=== PATIENT | female | born 1970 | race Caucasian/White ===

== ENCOUNTER 2016-12-27 17:54 | Inpatient (IN) | payer MEDICARE, OTHER ==
--- NOTE | ~2016-12-27 | OP ---
Record Of Operation [facility] [address] [place]. [address] NAME: NELSON BLUM : 72 STATUS : ADM IN [facility]#: [id number] AGE: 46 ADM/REG DATE : 12/27/16 MR#: [id number] REPORT SERV DATE: 12/28/16 DICTATED BY: KEATON PARRA DATE: 12/28/16 REPORT STATUS : Draft TRANSCRIBED BY: MODL DATE: 12/28/16 DATE OF PROCEDURE: 12/28/2016 PREOPERATIVE DIAGNOSIS: Right lower extremity chronic infection. POSTOPERATIVE DIAGNOSIS: Right lower extremity chronic infection. PROCEDURE: Right above-knee amputation. SURGEON: Mata Parra M.D. AGENCY APPOINTMENTS SUPERVISOR: See chart. DESCRIPTION OF PROCEDURE: The patient was taken to the operating room and placed supine on the table in normal fashion without any incident. General anesthetic was induced per the anesthesiologist. The patient was carefully positioned, padded, prepped, and draped in normal sterile fashion. A clamshell-type incision was made just proximal to the knee, electrocautery through the fat. A sequential dissection was done down onto the bone circumferentially. The femoral vascular bundle was identified and double stick tied. There was no evidence of bleeding there. Meticulous hemostasis was obtained. The sciatic nerve was grasped, pulled out into the wound, and cut sharply short so as to avoid neuroma formation. Periosteal elevator was used to elevate. The periosteum off the bone that was cut with a reciprocating saw. It was smoothed with a rasp. The wound was copiously irrigated, and again after meticulous hemostasis, the repair was done of anterior to posterior imagined structures. The wound was dressed sterilely. The patient awakened and taken to the postanesthesia care unit without incident. COMPLICATIONS: None. SPECIMENS: Amputated right lower extremity. ESTIMATED BLOOD LOSS: About 200 mL. WTB/SHAYYL Mata Parra M.D. / [id number] CC: Keyshawn Bailey MD
--- NOTE | ~2016-12-27 | DS ---
Discharge Summary [facility] [address] [place]. [address] NAME: NELSON BLUM : 72 STATUS : DIS IN PAT#: [id number] AGE: 46 ADM/REG DATE : 12/27/16 MR#: [id number] REPORT SERV DATE: 01/15/17 DICTATED BY: KEATON PARRA DATE: 01/12/17 REPORT STATUS : Draft TRANSCRIBED BY: JACQUELYN DATE: 01/12/17 Data Collection from hospitalization DISCHARGE DIAGNOSES: 1. Right lower extremity chronic infection. 2. Anxiety disorder. 3. Fibromyalgia. 4. Hypercholesterolemia. 5. Asthma. 6. Chronic obstructive pulmonary disease. 7. Tobacco use. CONSULTATIONS: None. PROCEDURES PERFORMED: Right above-knee amputation, 12/28/2016. PATHOLOGY: Right leg [id number] amputation - soft tissue with focal severe acute necrotizing inflammation with abscess formation, granulation tissue with focal bone destruction and osteonecrosis and focal foreign body reaction. Viable skin and soft tissue and bone margin without significant inflammatory component or osteomyelitis. Popliteal anterior tibial and posterior tibial artery without significant atherosclerotic compromise or involvement. Two benign lymph nodes. DISCHARGE MEDICATIONS: Soma 350 mg twice a day, vitamin D 1000 units daily, Colace 100 mg twice a day, Lexapro 20 mg at bedtime, ferrous sulfate 300 mg with breakfast and supper, levothyroxine 75 mcg daily, Ativan 1 mg twice a day, Singulair 10 mg at bedtime, Theragran tablets one tablet with breakfast, Protonix 40 mg twice a day, Lyrica 150 mg three times a day, Requip 3 mg at bedtime, Zocor 20 mg at bedtime, Coumadin as instructed, Tylenol 650 mg every four hours as needed, Mylanta 30 mL as needed, Dulcolax 15 mg as needed, Dilaudid 2-4 mg every four hours as needed, milk of magnesia 30 mL as needed, MiraLAX powder one packet twice a day as needed, Proventil one nebulized inhaler four times a day as needed, ProAir two puffs via inhaler as needed, Atrovent one nebulized inhaler four times a day as needed, lidocaine ointment one application twice a day as needed. CONDITION AT DISCHARGE: Stable. DISPOSITION: The patient was discharged to [facility] on a regular diet with activities as instructed. HOSPITAL COURSE: This is a 46-year-old female, who was seen for followup status post right total knee arthroplasty resection, 02/17/2016. The patient states that her pain was a 10 on a scale of 0-10. The patient has a chronic right lower extremity infection. It was felt that the patient would need to undergo an amputation. Treatment options were discussed and it was elected to proceed with surgical intervention. She was admitted to the hospital at this time for further evaluation and treatment. Upon admission, she was taken to the operating room where she underwent the above-mentioned procedure. She tolerated this well and there were no complications. On postop day one, she Discharge Summary [place] [id number] [place]. [address] NAME: NELSON BLUM : 72 STATUS : DIS IN [facility]#: [id number] AGE: 46 ADM/REG DATE : 12/27/16 MR#: [id number] REPORT SERV DATE: 01/15/17 DICTATED BY: KEATNO PARRA DATE: 01/12/17 REPORT STATUS : Draft TRANSCRIBED BY: JACQUELYN DATE: 01/12/17 was up sitting in a chair. She was crying and complained of pain being 8/10. She was transfused 1 unit of packed red blood cells. On the , she said she was still hurting on oxycodone and IV morphine for breakthrough pain. We encouraged her to use incentive spirometry. She was encouraged to mobilize with Physical Therapy. On 12/31/2016, she continued to state that her pain was not controlled. It was 8/10 in the right leg, but she was very drowsy. She could not keep her eyes open. Compression dressing remained in place. She was evaluated by Occupational and Physical Therapy. She continued to complain of pain in the right stump and also in the mid-lower back. She said it started hurting after transferring from the bed to the wheelchair. Discharge planning was performed. On 01/02/2017, she had no focal deficits. She had normal distal pulses. Discharge instructions were given. Due to her improved and stable condition, she was discharged to [facility] with the above-stated instructions. Information collected by: Delisa Coelho I submit the above information as my discharge summary. SERGIO/JACQUELYN Mata Parra M.D. / [id number] CC: Keyshawn Bailey MD [facility]
[~2016-12-27 17:54] MED LIST: ACCUNE1 INH; ADVAIR250 INH; ADVIL PO; ALBUTEROL5 INH; AMB5 PO; APRISO; ARMOUR THYRO60 MG PO; AT25 PO; ATROVENTUD INH; ATV1 PO; AVINZA60 PO; BUT/APAP/CAF OR; C2 PO; C25 PO; C5 PO; CIP5 PO; DIL4TAB PO; DILAUDID8 MG PO; ENBREL50 MG/M1 SC; ENDOCET1 TA4 PO; FERROUS SULF325 M1 PO; FIOR PO; HYDROXYZ HCL PO; KLONO5 PO; LEVOTHYROXIN75 MCG PO; LEXAPRO10 PO; LEXAPRO20 PO; LIALDA1.2 GM PO; LYRICA150 MG PO; LYRICA200 MG PO; METADATE OR; METHOTREXATE25 MG/ML SQ; MORPHINE SULF PO; NEUR800 PO; NORV25 PO; P5 PO; PCET PO; PERCOCET1 TA4 PO; PERCOCET1 TA5 PO; PLAQ200B PO; PR25 PO; PREV30 PO; PRILO PO; PROAIR HFA INH; PROTONIX PO; PROVENT20 INH; REQUIP3 PO; REQUIP5 MG PO; ROXICODONE15 MG PO; SINGULAIR1 PO; SOMATAB PO; T PO; TRAZODONE150 MG PO; TYLENOL PM PO; V5 PO; VENTOLIN HFA INH; VITAMIN D1000 UNI1 PO; VITAMIN D31000 UNIT PO; ZOCOR20 PO
[2016-12-27] MEDS ORDERED: ATV1 PO ×2 (19:47→19:48)
[2016-12-27] MEDS ORDERED: REQUIP3 PO (19:48)
[2016-12-27] MEDS ORDERED: SINGULAIR1 PO (19:48)
[2016-12-27] MEDS ORDERED: LYRICA150 MG PO (19:48)
[2016-12-27] MEDS ORDERED: AMB5 PO (19:49)
[2016-12-27] MEDS ORDERED: LEXAPRO20 PO (19:49)
[2016-12-27] MEDS ORDERED: PROTONIX PO (19:49)
[2016-12-27] MEDS ORDERED: LEVOTHYROXIN75 MCG PO (19:49)
[2016-12-27] MEDS ORDERED: ZOCOR20 PO (19:49)
[2016-12-27] MEDS ORDERED: OXYCOD PO (19:50)
[2016-12-27] MEDS ORDERED: VITAMIN D1000 UNI1 PO (19:55)
[2016-12-27] MEDS ORDERED: OTC PAIN MED PO (19:56)
[2016-12-27] MEDS ORDERED: SOMATAB PO (19:56)
[2016-12-27] MEDS ORDERED: ACET500CAP PO (19:56)
[2016-12-27] MEDS ORDERED: LIDOCAINE 5% OINT TOP (19:57)
[2016-12-28 08:39] LABS: HEMATOCRIT 30.3 % (36.0-48.0); HEMOGLOBIN 9.5 g/dL (12.0-16.0)
[2016-12-28 08:48] LABS: INTERNATIONAL NORMAL RATI 1.2 UNITS (-); PROTIME (NOT ORD) 15.5 SEC (12.0-14.5)
[2016-12-28 08:55] LABS: CHLORIDE, SERUM 105 MMOL/L (96-112); CO2 (CARBON DIOXIDE) 28 MMOL/L (24-34); CREATININE 0.55 MG/DL (0.55-1.02); DIRECT BILIRUBIN 0.1 MG/DL (0.0-0.4); GFR AFRICAN AMERICAN 131 ML/MIN (>=60); GFR NON AFRICAN AMERICAN 113 ML/MIN (>=60); GLUCOSE, SERUM 91 MG/DL (60-99); INDIRECT BILIRUBIN(NOT ORDER) 0.2 MG/DL (0.1-0.9); SGOT(AST) 12 U/L (5-40); SGPT(ALT) 8 U/L (5-65); SODIUM, SERUM 140 MMOL/L (135-148); TOTAL BILIRUBIN 0.3 MG/DL (0-1.2); TOTAL PROTEIN 8.5 G/DL (6.0-8.5)
[2016-12-28 08:56] LABS: ALKALINE PHOSPHATASE 174 U/L (45-117); BUN (BLOOD UREA NITROGEN) 9 MG/DL (6-23); CALCIUM, SERUM 8.6 MG/DL (8.5-10.4); POTASSIUM, SERUM 3.3 MMOL/L (3.5-5.3)
[2016-12-29 06:23] LABS: HEMATOCRIT 26.4 % (36.0-48.0); HEMOGLOBIN 8.1 g/dL (12.0-16.0)
[2016-12-29 06:24] LABS: INTERNATIONAL NORMAL RATI 1.4 UNITS (-); PROTIME (NOT ORD) 17.2 SEC (12.0-14.5)
[2016-12-29 06:30] LABS: BUN (BLOOD UREA NITROGEN) 9 MG/DL (6-23); CHLORIDE, SERUM 101 MMOL/L (96-112); CO2 (CARBON DIOXIDE) 30 MMOL/L (24-34); CREATININE 0.61 MG/DL (0.55-1.02); GFR AFRICAN AMERICAN 127 ML/MIN (>=60); GFR NON AFRICAN AMERICAN 109 ML/MIN (>=60); GLUCOSE, SERUM 90 MG/DL (60-99); POTASSIUM, SERUM 3.2 MMOL/L (3.5-5.3); SODIUM, SERUM 138 MMOL/L (135-148)
[2016-12-30 06:22] LABS: BASOPHILS 0.2 %; BASOPHILS ABSOLUTE 0.02 10/3/uL (0.0-0.16); EOSINOPHILS 1.5 %; EOSINOPHILS ABSOLUTE 0.16 10/3/uL (0.0-0.53); HEMOGLOBIN 9.4 g/dL (12.0-16.0); IMMATURE GRANULOCYTES 0.1 %; IMMATURE GRANULOCYTES ABSOLUTE 0.01 10/3/uL (0.0-0.11); LYMPHOCYTES 16.9 %; LYMPHOCYTES ABSOLUTE 1.86 10/3/uL (0.67-4.30); MEAN CORPUS HGB CONC 32.2 g/dL (32.0-36.0); MEAN CORPUSCULAR HEMOGLOB 25.7 pg (26.0-34.0); MEAN PLATELET VOLUME 8.4 fL (9.2-13.0); MONOCYTES ABSOLUTE 0.99 10/3/uL (0.21-1.20); NEUTROPHILS 72.3 %; NEUTROPHILS ABSOLUTE 7.95 10/3/uL (2.02-8.40); PLATELET COUNT 308 10/3/uL (150-400); RBC DISTRIBUTION WIDTH 18.4 % (12.0-16.0); RED CELL COUNT 3.66 10/6/uL (4.0-5.6)
[2016-12-30 06:23] LABS: HEMATOCRIT 29.2 % (36.0-48.0); MEAN CORPUSCULAR VOLUME 79.8 fL (80-100)
[2016-12-30 06:24] LABS: MANUAL DIFF NO %
[2016-12-30 06:28] LABS: INTERNATIONAL NORMAL RATI 1.8 UNITS (-)
[2016-12-30 06:29] LABS: BUN (BLOOD UREA NITROGEN) 11 MG/DL (6-23); CALCIUM, SERUM 8.1 MG/DL (8.5-10.4); CHLORIDE, SERUM 102 MMOL/L (96-112); CO2 (CARBON DIOXIDE) 33 MMOL/L (24-34); CREATININE 0.48 MG/DL (0.55-1.02); GFR AFRICAN AMERICAN 137 ML/MIN (>=60); GFR NON AFRICAN AMERICAN 118 ML/MIN (>=60); GLUCOSE, SERUM 98 MG/DL (60-99); POTASSIUM, SERUM 3.4 MMOL/L (3.5-5.3); PROTIME (NOT ORD) 20.3 SEC (12.0-14.5); SODIUM, SERUM 139 MMOL/L (135-148)
[2016-12-31 05:05] LABS: HEMATOCRIT 28.3 % (36.0-48.0); HEMOGLOBIN 8.8 g/dL (12.0-16.0)
[2016-12-31 05:12] LABS: INTERNATIONAL NORMAL RATI 2.4 UNITS (-)
[2016-12-31 05:15] LABS: PROTIME (NOT ORD) 25.6 SEC (12.0-14.5)
[2016-12-31 05:16] LABS: BUN (BLOOD UREA NITROGEN) 13 MG/DL (6-23); CALCIUM, SERUM 7.7 MG/DL (8.5-10.4); CHLORIDE, SERUM 103 MMOL/L (96-112); CO2 (CARBON DIOXIDE) 33 MMOL/L (24-34); CREATININE 0.57 MG/DL (0.55-1.02); GFR AFRICAN AMERICAN 130 ML/MIN (>=60); GFR NON AFRICAN AMERICAN 112 ML/MIN (>=60); GLUCOSE, SERUM 90 MG/DL (60-99); POTASSIUM, SERUM 3.4 MMOL/L (3.5-5.3); SODIUM, SERUM 140 MMOL/L (135-148)
[2017-01-01 05:33] LABS: BASOPHILS 0.2 %; BASOPHILS ABSOLUTE 0.02 10/3/uL (0.0-0.16); EOSINOPHILS 2.1 %; EOSINOPHILS ABSOLUTE 0.22 10/3/uL (0.0-0.53); HEMATOCRIT 28.5 % (36.0-48.0); HEMOGLOBIN 8.7 g/dL (12.0-16.0); IMMATURE GRANULOCYTES 0.3 %; IMMATURE GRANULOCYTES ABSOLUTE 0.03 10/3/uL (0.0-0.11); LYMPHOCYTES 18.9 %; MEAN CORPUSCULAR VOLUME 81.9 fL (80-100); MEAN PLATELET VOLUME 8.2 fL (9.2-13.0); MONOCYTES ABSOLUTE 0.95 10/3/uL (0.21-1.20); NEUTROPHILS 69.5 %; NEUTROPHILS ABSOLUTE 7.37 10/3/uL (2.02-8.40); PLATELET COUNT 345 10/3/uL (150-400); RBC DISTRIBUTION WIDTH 19.1 % (12.0-16.0); RED CELL COUNT 3.48 10/6/uL (4.0-5.6); WHITE BLOOD CELLS 10.6 10/3/uL (4.5-10.5)
[2017-01-01 05:36] LABS: MANUAL DIFF NO %; MEAN CORPUS HGB CONC 30.5 g/dL (32.0-36.0)
[2017-01-01 05:45] LABS: BUN (BLOOD UREA NITROGEN) 13 MG/DL (6-23); CALCIUM, SERUM 7.9 MG/DL (8.5-10.4); CHLORIDE, SERUM 99 MMOL/L (96-112); CO2 (CARBON DIOXIDE) 35 MMOL/L (24-34); CREATININE 0.44 MG/DL (0.55-1.02); GFR AFRICAN AMERICAN 141 ML/MIN (>=60); GFR NON AFRICAN AMERICAN 122 ML/MIN (>=60); GLUCOSE, SERUM 98 MG/DL (60-99); POTASSIUM, SERUM 3.9 MMOL/L (3.5-5.3); SODIUM, SERUM 136 MMOL/L (135-148)
[2017-01-01 05:48] LABS: INTERNATIONAL NORMAL RATI 2.1 UNITS (-)
[2017-01-02 05:37] LABS: BASOPHILS 0.4 %; BASOPHILS ABSOLUTE 0.04 10/3/uL (0.0-0.16); EOSINOPHILS 3.3 %; EOSINOPHILS ABSOLUTE 0.34 10/3/uL (0.0-0.53); HEMATOCRIT 28.7 % (36.0-48.0); IMMATURE GRANULOCYTES 0.3 %; IMMATURE GRANULOCYTES ABSOLUTE 0.03 10/3/uL (0.0-0.11); LYMPHOCYTES 25.1 %; LYMPHOCYTES ABSOLUTE 2.58 10/3/uL (0.67-4.30); MEAN CORPUS HGB CONC 31.4 g/dL (32.0-36.0); MEAN CORPUSCULAR HEMOGLOB 25.4 pg (26.0-34.0); MEAN CORPUSCULAR VOLUME 80.8 fL (80-100); MEAN PLATELET VOLUME 8.4 fL (9.2-13.0); MONOCYTES 10.6 %; MONOCYTES ABSOLUTE 1.09 10/3/uL (0.21-1.20); NEUTROPHILS 60.3 %; NEUTROPHILS ABSOLUTE 6.19 10/3/uL (2.02-8.40); PLATELET COUNT 362 10/3/uL (150-400); RBC DISTRIBUTION WIDTH 19.1 % (12.0-16.0); RED CELL COUNT 3.55 10/6/uL (4.0-5.6); WHITE BLOOD CELLS 10.3 10/3/uL (4.5-10.5)
[2017-01-02 05:41] LABS: MANUAL DIFF NO %
[2017-01-02 06:05] LABS: INTERNATIONAL NORMAL RATI 1.8 UNITS (-); PROTIME (NOT ORD) 20.5 SEC (12.0-14.5)
[2017-03-14] MEDS ORDERED: KADIANSR30 PO (02:26)
[2017-03-14] MEDS ORDERED: AMB5 PO (02:28)
[2017-03-14] MEDS ORDERED: VANCO1P IV (02:28)
[2017-03-26] MEDS ORDERED: SEPTRA DS1 TAB PO (13:58)
[2017-03-26] MEDS ORDERED: CIP5 PO (14:00)
[2017-03-26] MEDS ORDERED: FLUCON1 PO (14:02)
== END 2017-01-02 23:58 | DRG 475 ==
LOC: 1SO 17:54
PROVIDERS: Nurse Practitioner Acute Care; Nurse Practitioner Family; Specialist
PROC: 0Y6F0ZZ Detachment at Right Knee Region, Open Approach (ICD-10-PCS; principal; 2016-12-28 13:30)
PROC: 30233N1 Transfusion of Nonautologous Red Blood Cells into Peripheral Vein, Percutaneous Approach (ICD-10-PCS; 2016-12-29)
DX: M00.9 Pyogenic arthritis, unspecified (principal); D62 Acute posthemorrhagic anemia; E44.0 Moderate protein-calorie malnutrition; Z68.1 Body mass index [BMI] 19.9 or less, adult; Z99.81 Dependence on supplemental oxygen; M06.9 Rheumatoid arthritis, unspecified; J44.9 Chronic obstructive pulmonary disease, unspecified; E87.6 Hypokalemia; E78.5 Hyperlipidemia, unspecified; M79.7 Fibromyalgia; K21.9 Gastro-esophageal reflux disease without esophagitis; F32.9 Major depressive disorder, single episode, unspecified; E03.9 Hypothyroidism, unspecified; F17.210 Nicotine dependence, cigarettes, uncomplicated; Z79.899 Other long term (current) drug therapy; Z79.891 Long term (current) use of opiate analgesic; Z88.5 Allergy status to narcotic agent; Z88.8 Allergy status to other drugs, medicaments and biological substances; Z91.81 History of falling
CPT/HCPCS: 36415; 71010; 80048; 80076; 84132; 84703; 85014; 85018; 85025; 85610; 86850; 86900; 86901; 86920; 88307; 97110-GP; 97162-GP; 97165-GO; 97530-GP; A9270-GY; J0690; J1170; J2250; J2710; J3010; P9016

== ENCOUNTER 2017-01-19 16:48 | Emergency (ER) | payer MEDICARE, OTHER ==
[2017-01-19 16:15] LABS: BASOPHILS 0.6 %; BASOPHILS ABSOLUTE 0.04 10/3/uL (0.0-0.16); EOSINOPHILS 2.7 %; EOSINOPHILS ABSOLUTE 0.19 10/3/uL (0.0-0.53); HEMATOCRIT 28.6 % (36.0-48.0); IMMATURE GRANULOCYTES 0.4 %; IMMATURE GRANULOCYTES ABSOLUTE 0.03 10/3/uL (0.0-0.11); LYMPHOCYTES 26.7 %; LYMPHOCYTES ABSOLUTE 1.87 10/3/uL (0.67-4.30); MEAN CORPUS HGB CONC 31.5 g/dL (32.0-36.0); MEAN CORPUSCULAR HEMOGLOB 25.7 pg (26.0-34.0); MEAN CORPUSCULAR VOLUME 81.7 fL (80-100); MEAN PLATELET VOLUME 9.1 fL (9.2-13.0); NEUTROPHILS 59.6 %; NEUTROPHILS ABSOLUTE 4.18 10/3/uL (2.02-8.40); RBC DISTRIBUTION WIDTH 18.8 % (12.0-16.0)
[2017-01-19 16:16] LABS: MANUAL DIFF NO %; PLATELET COUNT 234 10/3/uL (150-400)
[2017-01-19 16:27] LABS: CHLORIDE, SERUM 104 MMOL/L (96-112); CREATININE 0.45 MG/DL (0.55-1.02); GFR AFRICAN AMERICAN 140 ML/MIN (>=60); GFR NON AFRICAN AMERICAN 121 ML/MIN (>=60); GLUCOSE, SERUM 88 MG/DL (60-99); SODIUM, SERUM 138 MMOL/L (135-148)
[2017-01-19 16:28] LABS: BUN (BLOOD UREA NITROGEN) 18 MG/DL (6-23); CO2 (CARBON DIOXIDE) 28 MMOL/L (24-34)
[2017-01-19 16:37] LABS: ANISOCYTOSIS 1+ (5-10/OIF) (0-5/OIF); HYPOCHROMIA 1+ (3-10/OIF) (0-2/OIF); PLATELET ESTIMATE ADQ (ADEQUATE)
[2017-01-19 16:38] LABS: OVALOCYTES 1+ (3-10/OIF) (0-2/OIF); SPHEROCYTES FEW (3-10/OIF)
[~2017-01-19 16:48] MED LIST changes: +ACET500CAP PO; +LIDOCAINE 5% OINT TOP; +OTC PAIN MED PO; +OXYCOD PO
[2017-03-14] MEDS ORDERED: KADIANSR30 PO (02:26)
[2017-03-14] MEDS ORDERED: VANCO1P IV (02:28)
[2017-03-14] MEDS ORDERED: AMB5 PO (02:28)
[2017-03-26] MEDS ORDERED: SEPTRA DS1 TAB PO (13:58)
[2017-03-26] MEDS ORDERED: CIP5 PO (14:00)
[2017-03-26] MEDS ORDERED: FLUCON1 PO (14:02)
== END 2017-01-19 21:55 | disposition home or self-care (01) ==
LOC: ER 16:48
PROVIDERS: Nurse Practitioner
DX: M48.06 Spinal stenosis, lumbar region (principal); D64.9 Anemia, unspecified; E83.51 Hypocalcemia; J45.909 Unspecified asthma, uncomplicated; F17.200 Nicotine dependence, unspecified, uncomplicated; Z88.8 Allergy status to other drugs, medicaments and biological substances; Z79.899 Other long term (current) drug therapy
CPT/HCPCS: 72132; 80048; 85025; 96374; 96375; 99285; J2360; J2405; J2550; Q9967

== ENCOUNTER 2017-01-30 13:43 | Inpatient (IN) | payer MEDICARE, OTHER ==
--- NOTE | ~2017-01-30 | OP ---
Record Of [facility] [address] [place]. [address] NAME: NELSON BLUM : 72 STATUS : DIS IN PAT#: [id number] AGE: 46 ADM/REG DATE : 01/30/17 MR#: [id number] REPORT SERV DATE: 02/19/17 DICTATED BY: VIANEY DE LA TORRE II DATE: 02/15/17 REPORT STATUS : Draft TRANSCRIBED BY: JACQUELYN DATE: 02/15/17 DATE OF PROCEDURE: 02/13/2017 PREOPERATIVE DIAGNOSIS: A failed pain pump, pain management system. POSTOPERATIVE DIAGNOSIS: A failed pain pump, pain management system. PROCEDURE: Removal of symptomatic pain pump from the right lower abdominal quadrants. SURGEON: Vianey De La Torre M.D. FLUIDS: 200 mL of LR. ESTIMATED BLOOD LOSS: Zero. DRAINS: None. COMPLICATIONS: None. ANTIBIOTIC: Preoperatively. PREOPERATIVE HISTORY: This 46-year-old female who is no longer utilizing her pain pump system. She had seen Pain Management in the past. She now is in the hospital for hematogenous diskitis and osteomyelitis, which has been surgically treated and she is still in the hospital for medical treatment. She was very interested in having this very large and symptomatic pain pump canister removed. Given her very cachectic frame, the canister was extremely prominent. We discussed the surgery and she was adamant that it be removed. We had previously removed the catheter from the pump through the posterior approach and essentially tied the catheter off. At this point, our goal was to remove the canister and provide her with some symptomatic relief. DESCRIPTION OF PROCEDURE: After informed consent was obtained, the patient was brought to the operating room at her request and general anesthesia achieved. She was placed in the supine position and the abdomen was prepped and draped in a sterile fashion. The large canister was removed through an incision (transverse). At this point, the canister was removed in its entirety and the area irrigated followed by a standard closure. The patient was extubated and transferred to PACU in stable condition. NORA/JACQUELYN Vianey De La Torre Record Of Operation [address] [address] NAME: NELSON BLUM : 72 STATUS : DIS IN PAT#: [id number] AGE: 46 ADM/REG DATE : 01/30/17 MR#: [id number] REPORT SERV DATE: 02/19/17 DICTATED BY: VIANEY DE LA TORRE II DATE: 02/15/17 REPORT STATUS : Draft TRANSCRIBED BY: MODL DATE: 02/15/17 Keyshawn JULIEN / [id number] CC: Keyshawn Ceballos II, MD
--- NOTE | ~2017-01-30 | OP ---
Record Of Operation [place] [address] [facility] [place]. [address] NAME: NELSON BLUM : 72 STATUS : ADM IN PAT#: [id number] AGE: 46 ADM/REG DATE : 01/30/17 MR#: [id number] REPORT SERV DATE: 02/09/17 DICTATED BY: VIANEY DE LA TORRE II DATE: 02/09/17 REPORT STATUS : Draft TRANSCRIBED BY: MODL DATE: 02/09/17 DATE OF PROCEDURE: 02/02/2017 PREOPERATIVE DIAGNOSES: 1. Hematogenous diskitis with osteomyelitis at L3-L4. 2. Severe stenosis L3-4, moderate stenosis L4-5. 3. Lumbar kyphosis and scoliosis secondary to instability due to the osteomyelitis and osseous destruction. POSTOPERATIVE DIAGNOSES: 1. Hematogenous diskitis with osteomyelitis at L3-L4. 2. Severe stenosis L3-4, moderate stenosis L4-5. 3. Lumbar kyphosis and scoliosis secondary to instability due to the osteomyelitis and osseous destruction. PROCEDURE: 1. Anterior partial corpectomy L3. 2. Anterior partial corpectomy L4. 3. Interbody arthrodesis, anterior, L3 and L4. 4. Debridement of osteomyelitis and diskitis. 5. Application of prosthetic device L3-L4. 6. Anterior instrumentation L3-L4. 7. Use of allograft substitute and bone morphogenic protein. SURGEON: Vianey De La Torre M.D. (Dr. Mckenzie was the co-surgeon for the anterior interbody arthrodesis). FLUIDS: Approximately 2 L lactated Ringer's. ESTIMATED BLOOD LOSS: 200 mL. CULTURES: Taken. ANTIBIOTICS: Given. DETAILS OF PROCEDURE: The patient was brought to the operating room at her request, and general anesthesia achieved. She was placed in the lateral position and the left-sided lateral approach performed by Dr. Mckenzie. The proper level was then radiographically confirmed. Under loupe magnification and head lamp, the significant osseous destruction was noted at L3 L4. At this point, we then had to aggressively debride and perform a partial corpectomy of L3. The rongeurs and pituitary rongeurs were used to remove necrotic bone. Approximately half of the vertebral body was resected. Next, the similar procedure was required at L4. Once again, we removed approximately 50% of Record Of Operation [place] [id number] [facility] [place]. [address] NAME: NELSON BLUM : 72 STATUS : ADM IN PAT#: [id number] AGE: 46 ADM/REG DATE : 01/30/17 MR#: [id number] REPORT SERV DATE: 02/09/17 DICTATED BY: VIANEY DE LA TORRE II DATE: 02/09/17 REPORT STATUS : Draft TRANSCRIBED BY: MODL DATE: 02/09/17 the vertebral body. The debridement was carried out aggressively to identify and reveal bleeding bone. Next, the area was irrigated. Please note, cultures were taken prior to debridement and corpectomy. Following copious irrigation, the corpectomy device was placed. This was an expandable device. Partial correction of the kyphosis was achieved. Next, the anterior instrumentation was applied with Globus plate. Two screws were then placed in the cranial portion of L3 and the caudal portion of L4. Multiplanar imaging confirmed acceptable placement of the implants. Next, allograft substitute and bone morphogenic protein were applied to the defect. The standard closure was performed. The patient was extubated and transferred to PACU in stable condition. NORA/JACQUELYN Vianey De La Torre II, M.D. / [id number] CC: Keyshawn Ceballos II, MD
--- NOTE | ~2017-01-30 | DS ---
Discharge Summary [facility] [address] [place]. [address] NAME: NELSON BLUM : 72 STATUS : DIS IN PAT#: [id number] AGE: 46 ADM/REG DATE : 01/30/17 MR#: [id number] REPORT SERV DATE: 03/06/17 DICTATED BY: VIANEY DE LA TORRE II DATE: 03/05/17 REPORT STATUS : Draft TRANSCRIBED BY: JACUQELYN DATE: 03/05/17 Data Collection from hospitalization DISCHARGE DIAGNOSES: 1. Hematogenous diskitis with osteomyelitis at L3-L4. 2. Severe stenosis at L3-4, moderate stenosis at L4-5. 3. Lumbar kyphosis and scoliosis secondary to instability due to the osteomyelitis and osseous destruction. 4. Hypothyroidism. 5. History of recent right knee amputation. 6. Tobacco use. CONSULTATIONS: 1. Wilfrid Gomez M.D. 2. Kee Mckenzie M.D. PROCEDURES PERFORMED: 1. Lateral retroperitoneal exposure from L2-L5, corpectomy with diskectomy at L3-L4 with instrumentation and placement of interbody device on 02/02/2017. 2. Anterior partial corpectomy at L3; anterior partial corpectomy at L4; interbody arthrodesis, anterior, L3 and L4; debridement of osteomyelitis and diskitis; application of prosthetic device at L3-L4; anterior instrumentation at L3-L4; use of allograft substitute and bone morphogenic protein on 02/02/2017. 3. Posterior arthrodesis at L2-3, L3-4, and L4-5; posterior segmental instrumentation at L2-3, L3-4, and L4-5; use of allograft substitute and bone morphogenic protein; use of stereotactic spinal imaging on 02/07/2017. 4. Removal of symptomatic pain pump from right lower abdominal quadrant on 02/13/2017. PATHOLOGY: Bone biopsy left 12th rib - no specific microscopic abnormality. Bone marrow - normal appearing lineage hematopoiesis - 50% cellular. Bone and soft tissue, lumbar spine - nonspecific degenerative changes. Hardware from previous surgery - see gross description. MEDICATIONS: Tylenol 1000 mg twice a day as needed, ProAir two puffs via inhaler as needed, Soma 350 mg twice a day, vitamin D 1000 units daily, Lexapro 20 mg at bedtime, Dilaudid 2 mg every four hours as needed, Ativan 1 mg twice a day, Singulair 10 mg at bedtime, Roxicodone 30 mg every six hours as needed, Protonix 40 mg twice a day, Lyrica 150 mg three times a day, Zocor 20 mg at bedtime, and IV vancomycin as instructed. CONDITION AT DISCHARGE: Stable. DISPOSITION: The patient was discharged home to be followed by home health care on a regular diet with activities as instructed. She would follow up with me two to three weeks following discharge. 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 She has a remote history of MSSA right hip infection. She had been apparently noncompliant according to Dr. Gomez. She was transferred to a rehab facility and then Discharge Summary [address] [address] NAME: NELSON BLUM : 72 STATUS : DIS IN PAT#: [id number] AGE: 46 ADM/REG DATE : 01/30/17 MR#: [id number] REPORT SERV DATE: 03/06/17 DICTATED BY: VIANEY DE LA TORRE II DATE: 03/05/17 REPORT STATUS : Draft TRANSCRIBED BY: JACQUELYN DATE: 03/05/17 began having severely intensifying back pain. An MRI was performed, which showed infection at L3-4. She denies any history of surgery previously in her spine. She does have chronic coccyx wounds that were debrided over the past year. [facility] Her MRI had shown significant destruction of the L3 and L4 vertebral bodies and some stenosis at L3-4 and L4-5. Treatment options were discussed and it was elected to proceed with surgical intervention. She was admitted to the hospital at this time for further evaluation and treatment. Upon admission, she was seen by Dr. Wilfrid Gomez. He had followed her over the past year for serratia, right prosthetic knee infection. She has a history reported of rheumatoid arthritis without any followup with Rheumatology and on no treatment. She has a remote MSSA right hip infection. She was noncompliant with followup and eventually had undergone right above-knee amputation. She had been transferred to a rehab facility. She states that while she was there she started having low back pain acutely after transferring from a chair. She said she felt a "pop." She does have a history of chronic back pain, and in fact, she had some form of pain pump or spine stimulator placed that was not functional. She had been treated with an antibiotic for urinary tract infection because she had an "infection." The patient said she did not have symptoms of urinary tract infection. Her right above-knee amputation stump had healed well. She was having some loose stools. She continues to smoke. The patient has a history of noncompliance with followup appointments. Cultures were requested and surgery was performed. Antibiotics would be held prior to surgery. He suggested removing the spine stimulator, which was nonfunctional at least if it has not been used. Blood cultures were going to be obtained. The following day, she was stable. Plans were being made to proceed with surgical intervention. She remained afebrile. ESR was 97. CRP was 105. Blood cultures were negative. On 02/02/2017, she was taken to the operating room where she underwent the above-mentioned procedure by myself and Dr. Kee Mckenzie. She tolerated this well, and there were no complications. On postop day #1, she was afebrile. Operative Gram stain showed no organisms at this time. Empiric vancomycin/meropenem were being provided. We encouraged her to ambulate. Later that day, operative culture revealed Staph. Blood cultures remained negative. She was evaluated by Physical Therapy. On 02/04/2017, she continued to complain of low back pain. Her legs had improved. She said she felt bloated. She has not had a bowel movement and was not passing flatus. She did have some nausea, but no vomiting. She was able to tolerate oral intake without difficulty. She declined having an enema. MiraLAX was ordered. Blood pressure was borderline. She began to pass flatus. Stage 2 of her surgical intervention was going to be performed in a couple of days. On 02/05/2017, T-max was 101. She has not had a bowel movement and did not want a suppository. She still had some back soreness. Vancomycin was continued. On 02/07/2017, she was taken back to the operating room where she underwent the above-mentioned procedure. She tolerated this well, and there were no complications. The following day, she was reevaluated by Physical Therapy. She was afebrile. AST was elevated at 67. White count was 14.9. Thirty-six more days of vancomycin was being planned. We are going to follow her liver and renal function. On 02/09/2017, she was stable. Her pain was uncontrolled due to no [employer]. She denied any lower extremity radiculopathy, just the expected postop pain. She was passing flatus. The [employer] was restarted. The patient wanted to go home instead to a rehab facility. She remained afebrile. On 02/10/2017, she had worsening Discharge Summary [place] [address] [facility] [place] [address] NAME: NELSON BLUM : 72 STATUS : DIS IN PAT#: [id number] AGE: 46 ADM/REG DATE : 01/30/17 MR#: [id number] REPORT SERV DATE: 03/06/17 DICTATED BY: VIANEY DE LA TORRE II DATE: 03/05/17 REPORT STATUS : Draft TRANSCRIBED BY: JACQUELYN DATE: 03/05/17 abdominal distention. She did report passing flatus. She complained of abdominal discomfort. White count was 9.5. KUB was performed. A PICC line was inserted. The next day, her T-max was 100.3. She was in good spirits. She had no GI symptoms or symptoms. She was eating. Unger catheter was removed. She did have a very hard bowel movement. The [employer] and Unger were discontinued. Plans were being made to proceed with surgical intervention. On 02/13/2017, she was taken back to the operating room where she underwent the above- mentioned procedure. She tolerated this well, and there were no complications. The following day, she was stable. She did have a bowel movement. She was alert and cooperative. Her dressings were changed. The [employer] was in place. Her pain pump had been removed. On 02/15/2017, she was feeling better. She looked good. She was more alert. Discharge planning continued. The [employer] had been discontinued. On 02/16/2017, discharge instructions were given. Due to her improved and stable condition, she was discharged home to be followed by home health care with the above-stated instructions. Information collected by: Delisa Coelho I submit the above information as my discharge summary. SERGIO/JACQUELYN Vianey De La Torre II, M.D. / [id number] CC: Keyshawn Ceballos II, MD Paul Cornea, M.D.
--- NOTE | ~2017-01-30 | OP ---
Record Of Operation [facility] [address] [place]. [address] NAME: NELSON BLUM : 72 STATUS : ADM IN [facility]#: [id number] AGE: 46 ADM/REG DATE : 01/30/17 MR#: [id number] REPORT SERV DATE: 02/11/17 DICTATED BY: VIANEY DE LA TORRE II DATE: 02/11/17 REPORT STATUS : Draft TRANSCRIBED BY: JACQUELYN DATE: 02/11/17 DATE OF PROCEDURE: 02/07/2017 PREOPERATIVE DIAGNOSES: 1. Hematogenous osteomyelitis and diskitis at L3-L4, status post reconstruction anteriorly. 2. Stenosis at L3-4 and L4-5. 3. Severe facet arthrosis, L4-L5. POSTOPERATIVE DIAGNOSES: 1. Hematogenous osteomyelitis and diskitis at L3-L4, status post reconstruction anteriorly. 2. Stenosis at L3-4 and L4-5. 3. Severe facet arthrosis, L4-L5. PROCEDURE: 1. Posterior arthrodesis, L2-3, L3-4, and L4-5. 2. Posterior segmental instrumentation, L2-3, L3-4, and L4-5. 3. Use of allograft substitute and bone morphogenic protein. 4. Use of stereotactic spinal imaging. FLUIDS: 1100 mL LR. ESTIMATED BLOOD LOSS: 100 mL. one unit of pack red blood cells. PREOPERATIVE HISTORY: This is a 46-year-old female, status post L3-L4 reconstruction, secondary to infection (hematogenous). She was feeling better. The patient was brought back overall for the posterior stabilization as I did not believe the anterior construct was going to be stable enough. She also does have some degree of osteoporosis from her chronic medical issues and likely now nutrition. DESCRIPTION OF PROCEDURE: After informed consent was obtained, the patient was brought to the operating room at her request. Please note, I also spoke with her father Vu at length. At this point, the patient underwent general anesthesia and she was placed in prone position. The back was prepped and draped in a sterile fashion. She does have some decubitus tissues down around her sacral area and this was isolated from the surgical field. Next, the intraoperative CT scan was completed and stereotactic guidance used throughout the case. Essentially four incisions were then made, two on the left, and 2 on the right. We then placed the pedicle screws into L2 and L3 as well as L4 and L5. The repeat CT scan confirmed acceptable placement of the implants. The rods were then well assembled and final tightening performed. Through the small incisions were able to dissect down to the facet joints of L2-3, L3-4, and L4-5. We were able to remove the facet capsules and decorticate the lamina, as well as the facets, and placed allograft substitute, and bone morphogenic protein along these decorticated surfaces. Record Of Operation [address] [address] NAME: NELSON BLUM : 72 STATUS : ADM IN PAT#: [id number] AGE: 46 ADM/REG DATE : 01/30/17 MR#: [id number] REPORT SERV DATE: 02/11/17 DICTATED BY: VIANEY DE LA TORRE II DATE: 02/11/17 REPORT STATUS : Draft TRANSCRIBED BY: JACQUELYN DATE: 02/11/17 Next, the standard dressings were applied, following closure, the patient was extubated, and transferred to PACU in stable condition. NORA/JACQUELYN Vianey De La Torre II, M.D. / [id number] CC: Keyshawn Ceballos II, MD
--- NOTE | ~2017-01-30 | HP ---
History And Physical [place] [id number] [facility] [place]. [address] NAME: NELSON BLUM : 72 STATUS : ADM IN [facility]#: [id number] AGE: 46 ADM/REG DATE : 01/30/17 MR#: [id number] REPORT SERV DATE: 02/02/17 DICTATED BY: VIANEY DE LA TORRE II DATE: 02/02/17 REPORT STATUS : Draft TRANSCRIBED BY: JACQUELYN DATE: 02/02/17 DATE OF ADMISSION: 01/30/2017 CHIEF COMPLAINT: Back pain. 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 She has remote history of MSSA right hip infection. She has been apparently noncompliant per Dr. Gomez. She was transferred to rehab facility and then began having severely intensifying back pain. She was sent for an MRI which showed infection at L3-4. She denies any history of surgery previously in her spine. She has chronic coccyx wounds that were debrided in the last year. [facility]. PAST MEDICAL HISTORY: Hypothyroidism, cholecystectomy, appendectomy, right hip replacement, and recent right knee amputation. SOCIAL HISTORY: She lives in [place], [place]. Continues to smoke. She has a family history of diabetes. ALLERGIES: NONE. MEDICATIONS ON ADMISSION: Soma, vitamin D, Lexapro, Dilaudid, and Ativan. PHYSICAL EXAMINATION: GENERAL: She is a female who is rather cachectic appearing and appears older than her stated age. LUNGS: Revealed no stridor on inspiration or expiration. CARDIOVASCULAR: Regular rate and rhythm when I palpated the radial pulse. ABDOMEN: Soft. BACK: Reveals no scars, deformities, or masses. IMAGING: MRI does show some significant destruction of the L3 and L4 vertebral bodies. There are some stenosis at L3-4 and L4-5. ASSESSMENT AND PLAN: Female with history of infection, which resulted in the right above knee amputation last year. She does have acute on chronic back pain with apparent osteomyelitis and diskitis which appears to be hematogenous. Plan will be for consideration of CT-guided biopsy versus surgery. NORA/JACQUELYN History And Physical [address] [place]. [address] NAME: NELSON BLUM : 72 STATUS : ADM IN PAT#: [id number] AGE: 46 ADM/REG DATE : 01/30/17 MR#: [id number] REPORT SERV DATE: 02/02/17 DICTATED BY: VIANEY DE LA TORRE II DATE: 02/02/17 REPORT STATUS : Draft TRANSCRIBED BY: MODL DATE: 02/02/17 Vianey De La Torre II, M.D. / [id number] CC: Keyshawn Ceballos II, MD
--- NOTE | ~2017-01-30 | CN ---
Consultation Report [facility] [address] [place]. [address] NAME: NELSON BLUM : 72 STATUS : ADM IN PAT#: [id number] AGE: 46 ADM/REG DATE : 01/30/17 MR#: [id number] REPORT SERV DATE: 01/30/17 DICTATED BY: WILFRID DE LA ROSA DATE: 01/30/17 REPORT STATUS : Draft TRANSCRIBED BY: MODL DATE: 01/30/17 INFECTIOUS DISEASE NOTE DATE OF CONSULTATION: 01/30/2017 A 46-year-old lady whom I followed last year for Serratia right prosthetic knee infection and who has a history of reported rheumatoid arthritis without any followup with Rheumatology and on no treatment, remote MSSA right hip infection. She was noncompliant with followups. Eventually, she had a right above-knee amputation at the beginning of December of this year. She was then transferred to rehab facility. She states that while there she started having low back pain acutely after transferring from a chair. She felt like a "pop." However, she does have a history of chronic back pain, and in fact, she had some form of pain pump or spine stimulator placed that is not functional. While at this rehab facility, she had an MRI of the spine which apparently showed "infection." She was treated with an antibiotic for urinary tract infection because she had an episode of fever. She states she did not have symptoms of urinary tract infection. It looks like on the 01/19/2017, she was in the emergency room here at [facility] because of the back pain and a CT scan showed L3-L4 erosive disk space changes, L4-L5 disk bulging with severe stenosis, and endplates distortion, a stimulator wire that entered at L5-S1 level and extended above T10 level, and spinal stenoses at L3-L4 and L4-L5. Lab work showed a creatinine of 0.4, WBC 7, hemoglobin of 9. She was referred to Dr. De La Torre. She saw Dr. De La Torre's nurse practitioner today, and she was sent to the hospital for surgery. The patient reports no further fever after that initial episode of no urinary symptoms. The right AKA stump has healed well. She had some loose stools today. She continues to smoke. She had a chronic coccyx wounds which was debrided last year, and she was [facility]. It sounds like she went to the [facility] and had a VAC pack for a while, but I do not think she had any further followup. PAST MEDICAL HISTORY: As I mentioned above plus hypothyroidism, cholecystectomy, appendectomy, right hip replacement. She does not follow with Rheumatology, but in the past she saw Dr. Granados. SOCIAL HISTORY: She is accompanied by her father now. She continues to smoke. FAMILY HISTORY: Diabetes. ALLERGIES: NONE. MEDICATIONS ON ADMISSION: Soma, vitamin D, Lexapro, Dilaudid, p.r.n. Ativan, Singulair, Protonix, Lyrica, and Zocor. PHYSICAL EXAMINATION: GENERAL: She is very slim. She is missing her lot of teeth, just the roots are seen. EYES: With white sclerae. Consultation Report [address] [place]. [address] NAME: NELSON BLUM : 72 STATUS : ADM IN [facility]#: [id number] AGE: 46 ADM/REG DATE : 01/30/17 MR#: [id number] REPORT SERV DATE: 01/30/17 DICTATED BY: WILFRID DE LA ROSA DATE: 01/30/17 REPORT STATUS : Draft TRANSCRIBED BY: JACQUELYN DATE: 01/30/17 LUNGS: Decreased sounds throughout. No wheezes, rhonchi, or rales. HEART: Regular rhythm. Distant sounds. ABDOMEN: Soft, compressible. EXTREMITIES: The right AKA stump is healed. Coccyx wounds have thick margins, but pink based about a 1.5 cm. Left foot without any open wounds. LAB WORK: Today, WBC is 9, sedimentation and CRP are pending. ASSESSMENT AND PLAN: 1. The patient was seen previously for Serratia right prosthetic knee infection in 2016, status post right above-knee amputation. She complains of acute on chronic low back pain and she reports MRI changes at L3-L4. I do not have that report. The CT scan done here on the 01/19/2017 show some chronic changes at L3-L4 and L4-L5 as well as spinal stenosis. 2. She has chronic coccyx wounds. 3. She has a nonfunctional spine pain pump. 4. She has a history of noncompliance with followup appointments. The plan is unclear to me. I am going to try to discuss with Dr. De La Torre. If surgery is done, please obtain cultures. I would like to hold antibiotics prior to surgery. Also, I would suggest removing the spine stimulator which is nonfunctional at least if it has not been used. We will check blood cultures. I discussed with the patient and her father. PC/MODL Wilfrid De La Rosa M.D. / [id number] CC: Keyshawn Ceballos II, MD
--- NOTE | ~2017-01-30 | OP ---
Record Of Operation [facility] [address] [place]. [address] NAME: NELSON BLUM : 72 STATUS : ADM IN PAT#: [id number] AGE: 46 ADM/REG DATE : 01/30/17 MR#: [id number] REPORT SERV DATE: 02/06/17 DICTATED BY: KEE WILLIS II DATE: 02/06/17 REPORT STATUS : Draft TRANSCRIBED BY: MODL DATE: 02/06/17 DATE OF PROCEDURE: 02/02/2017 ATTENDING CO-SURGEON: Kee Willis MD SECOND CO-SURGEON: Diego De La Torre MD PREOPERATIVE DIAGNOSIS: Osteomyelitis with infection at L3-L4. POSTOPERATIVE DIAGNOSIS: Osteomyelitis with infection at L3-L4. PROCEDURES: 1. Lateral retroperitoneal exposure from L2 to L5. 2. Corpectomy with diskectomy L3-L4 with instrumentation and placement of interbody device. ANESTHESIA: General. ESTIMATED BLOOD LOSS: For my portion of the procedure was 250 mL. Please note, I am a co-surgeon. I am dictating a portion of the note. Remaining portion is found in a note by Dr. De La Torre. DETAILS OF PROCEDURE: The patient was taken to the operating room, placed supine on the table. General anesthesia was achieved. She was then placed in the left lateral decubitus position and the left flank and abdomen and back were prepped and draped in sterile fashion. We marked the L3-L4 vertebral bodies with fluoroscopy. We then made a lateral retroperitoneal incision over the 12th rib and carried this into the retroperitoneal space. Part of the 12th rib was removed. We then swept the peritoneum, the ureter, the kidney all to the right to expose the psoas muscle. Significant inflammatory tissue and edema was present within the retroperitoneum. We were dissected in the superior aspect of the incision and we identified the L2 vertebral body. We then divided the segmental vessels from L2-L5 sequentially with 2-0 silk suture as well as 5-0 Prolene. This allowed mobilization of the aorta. We then continued dissection along the anterior portion of the vertebral bodies and completely exposed the vertebral bodies from L2 to L5, and we marked this with fluoroscopy. A diskectomy with graft replacement and interbody device was then performed. Please see Dr. De La Torre's notes for details of this. Once x-ray confirmed adequate placement of the instrumentation, we inspected the retroperitoneum. It was hemostatic. The ureter was intact. We removed the retractors and allowed the abdominal contents to return to their normal anatomic position. The posterior muscle was closed with running Vicryl, the anterior fascia was closed with PDS. Skin was closed subcuticular. At the end of the procedure, the patient was stable. She tolerated it well. Record Of Operation [place] [id number] [place]. [address] NAME: NELSON BLUM : 72 STATUS : ADM IN PAT#: [id number] AGE: 46 ADM/REG DATE : 01/30/17 MR#: [id number] REPORT SERV DATE: 02/06/17 DICTATED BY: KEE WILLIS II DATE: 02/06/17 REPORT STATUS : Draft TRANSCRIBED BY: JACQUELYN DATE: 02/06/17 POLLO/JACQUELYN Kee Willis II, M.D. / [id number] CC: Keyshawn Ceballos II, MD
[2017-01-30] MEDS ORDERED: DIL2TAB PO (15:29)
[2017-01-30 15:35] LABS: BASOPHILS 0.1 %; BASOPHILS ABSOLUTE 0.01 10/3/uL (0.0-0.16); EOSINOPHILS 0.4 %; EOSINOPHILS ABSOLUTE 0.04 10/3/uL (0.0-0.53); HEMATOCRIT 34.9 % (36.0-48.0); HEMOGLOBIN 11.2 g/dL (12.0-16.0); IMMATURE GRANULOCYTES 0.2 %; IMMATURE GRANULOCYTES ABSOLUTE 0.02 10/3/uL (0.0-0.11); LYMPHOCYTES ABSOLUTE 1.46 10/3/uL (0.67-4.30); MANUAL DIFF NO %; MEAN CORPUS HGB CONC 32.1 g/dL (32.0-36.0); MEAN PLATELET VOLUME 8.8 fL (9.2-13.0); MONOCYTES 8.5 %; MONOCYTES ABSOLUTE 0.83 10/3/uL (0.21-1.20); NEUTROPHILS 75.8 %; NEUTROPHILS ABSOLUTE 7.37 10/3/uL (2.02-8.40); PLATELET COUNT 347 10/3/uL (150-400); RED CELL COUNT 4.31 10/6/uL (4.0-5.6); WHITE BLOOD CELLS 9.7 10/3/uL (4.5-10.5)
[2017-01-30 16:25] LABS: SED RATE 97 MM/HR (0-20)
[2017-02-01 06:49] LABS: BASOPHILS 0.5 %; BASOPHILS ABSOLUTE 0.04 10/3/uL (0.0-0.16); EOSINOPHILS 3.2 %; EOSINOPHILS ABSOLUTE 0.23 10/3/uL (0.0-0.53); HEMOGLOBIN 10.6 g/dL (12.0-16.0); IMMATURE GRANULOCYTES 0.1 %; IMMATURE GRANULOCYTES ABSOLUTE 0.01 10/3/uL (0.0-0.11); LYMPHOCYTES 32.1 %; LYMPHOCYTES ABSOLUTE 2.34 10/3/uL (0.67-4.30); MEAN CORPUS HGB CONC 31.2 g/dL (32.0-36.0); MEAN CORPUSCULAR HEMOGLOB 25.7 pg (26.0-34.0); MEAN CORPUSCULAR VOLUME 82.3 fL (80-100); MEAN PLATELET VOLUME 8.5 fL (9.2-13.0); MONOCYTES ABSOLUTE 0.66 10/3/uL (0.21-1.20); NEUTROPHILS 55.1 %; NEUTROPHILS ABSOLUTE 4.02 10/3/uL (2.02-8.40); PLATELET COUNT 319 10/3/uL (150-400); RBC DISTRIBUTION WIDTH 17.5 % (12.0-16.0); RED CELL COUNT 4.13 10/6/uL (4.0-5.6); WHITE BLOOD CELLS 7.3 10/3/uL (4.5-10.5)
[2017-02-01 06:53] LABS: MANUAL DIFF NO %
[2017-02-01 07:01] LABS: CALCIUM, SERUM 8.7 MG/DL (8.5-10.4); CHLORIDE, SERUM 101 MMOL/L (96-112); CO2 (CARBON DIOXIDE) 32 MMOL/L (24-34); CREATININE 0.46 MG/DL (0.55-1.02); GFR AFRICAN AMERICAN 139 ML/MIN (>=60); GFR NON AFRICAN AMERICAN 120 ML/MIN (>=60); POTASSIUM, SERUM 3.2 MMOL/L (3.5-5.3); SODIUM, SERUM 140 MMOL/L (135-148)
[2017-02-01 07:02] LABS: BUN (BLOOD UREA NITROGEN) 13 MG/DL (6-23); GLUCOSE, SERUM 67 MG/DL (60-99)
[2017-02-02 11:46] LABS: HEMATOCRIT 23.9 % (36.0-48.0); HEMOGLOBIN 7.5 g/dL (12.0-16.0)
[2017-02-03 08:24] LABS: BASOPHILS 0.3 %; BASOPHILS ABSOLUTE 0.04 10/3/uL (0.0-0.16); EOSINOPHILS 2.1 %; EOSINOPHILS ABSOLUTE 0.25 10/3/uL (0.0-0.53); IMMATURE GRANULOCYTES 0.9 %; LYMPHOCYTES 13.2 %; LYMPHOCYTES ABSOLUTE 1.55 10/3/uL (0.67-4.30); MEAN CORPUSCULAR HEMOGLOB 26.7 pg (26.0-34.0); MEAN CORPUSCULAR VOLUME 80.1 fL (80-100); MEAN PLATELET VOLUME 8.3 fL (9.2-13.0); MONOCYTES 10.1 %; MONOCYTES ABSOLUTE 1.18 10/3/uL (0.21-1.20); NEUTROPHILS 73.4 %; PLATELET COUNT 243 10/3/uL (150-400); RBC DISTRIBUTION WIDTH 16.8 % (12.0-16.0); RED CELL COUNT 3.82 10/6/uL (4.0-5.6)
[2017-02-03 08:25] LABS: HEMATOCRIT 30.6 % (36.0-48.0); HEMOGLOBIN 10.2 g/dL (12.0-16.0); MANUAL DIFF NO %; MEAN CORPUS HGB CONC 33.3 g/dL (32.0-36.0); WHITE BLOOD CELLS 11.7 10/3/uL (4.5-10.5)
[2017-02-04 06:53] LABS: BASOPHILS 0.2 %; BASOPHILS ABSOLUTE 0.02 10/3/uL (0.0-0.16); EOSINOPHILS 4.6 %; EOSINOPHILS ABSOLUTE 0.47 10/3/uL (0.0-0.53); IMMATURE GRANULOCYTES 0.3 %; IMMATURE GRANULOCYTES ABSOLUTE 0.03 10/3/uL (0.0-0.11); LYMPHOCYTES 18.5 %; LYMPHOCYTES ABSOLUTE 1.88 10/3/uL (0.67-4.30); MEAN CORPUS HGB CONC 33.2 g/dL (32.0-36.0); MEAN CORPUSCULAR HEMOGLOB 27.6 pg (26.0-34.0); MEAN PLATELET VOLUME 8.9 fL (9.2-13.0); MONOCYTES 10.9 %; MONOCYTES ABSOLUTE 1.11 10/3/uL (0.21-1.20); NEUTROPHILS 65.5 %; NEUTROPHILS ABSOLUTE 6.64 10/3/uL (2.02-8.40); PLATELET COUNT 215 10/3/uL (150-400); RBC DISTRIBUTION WIDTH 17.6 % (12.0-16.0); RED CELL COUNT 3.26 10/6/uL (4.0-5.6); WHITE BLOOD CELLS 10.2 10/3/uL (4.5-10.5)
[2017-02-04 06:54] LABS: HEMATOCRIT 27.1 % (36.0-48.0); MANUAL DIFF NO %; MEAN CORPUSCULAR VOLUME 83.1 fL (80-100)
[2017-02-04 07:04] LABS: CALCIUM, SERUM 7.8 MG/DL (8.5-10.4); CHLORIDE, SERUM 101 MMOL/L (96-112); CO2 (CARBON DIOXIDE) 30 MMOL/L (24-34); GFR AFRICAN AMERICAN 128 ML/MIN (>=60); GFR NON AFRICAN AMERICAN 110 ML/MIN (>=60); POTASSIUM, SERUM 3.5 MMOL/L (3.5-5.3); SODIUM, SERUM 135 MMOL/L (135-148)
[2017-02-04 07:08] LABS: BUN (BLOOD UREA NITROGEN) 7 MG/DL (6-23); GLUCOSE, SERUM 127 MG/DL (60-99)
[2017-02-06 06:59] LABS: BASOPHILS 0.1 %; BASOPHILS ABSOLUTE 0.01 10/3/uL (0.0-0.16); EOSINOPHILS 4.4 %; EOSINOPHILS ABSOLUTE 0.38 10/3/uL (0.0-0.53); HEMOGLOBIN 8.4 g/dL (12.0-16.0); IMMATURE GRANULOCYTES 0.3 %; IMMATURE GRANULOCYTES ABSOLUTE 0.03 10/3/uL (0.0-0.11); LYMPHOCYTES 17.6 %; LYMPHOCYTES ABSOLUTE 1.53 10/3/uL (0.67-4.30); MEAN CORPUS HGB CONC 32.3 g/dL (32.0-36.0); MEAN CORPUSCULAR HEMOGLOB 27.4 pg (26.0-34.0); MEAN CORPUSCULAR VOLUME 84.7 fL (80-100); MEAN PLATELET VOLUME 8.1 fL (9.2-13.0); MONOCYTES 12.9 %; MONOCYTES ABSOLUTE 1.12 10/3/uL (0.21-1.20); NEUTROPHILS 64.7 %; NEUTROPHILS ABSOLUTE 5.62 10/3/uL (2.02-8.40); RBC DISTRIBUTION WIDTH 17.2 % (12.0-16.0); RED CELL COUNT 3.07 10/6/uL (4.0-5.6); WHITE BLOOD CELLS 8.7 10/3/uL (4.5-10.5)
[2017-02-06 07:03] LABS: MANUAL DIFF NO %; PLATELET COUNT 310 10/3/uL (150-400)
[2017-02-06 07:12] LABS: BUN (BLOOD UREA NITROGEN) 10 MG/DL (6-23); CALCIUM, SERUM 7.9 MG/DL (8.5-10.4); CHLORIDE, SERUM 98 MMOL/L (96-112); CO2 (CARBON DIOXIDE) 32 MMOL/L (24-34); CREATININE 0.46 MG/DL (0.55-1.02); GFR AFRICAN AMERICAN 139 ML/MIN (>=60); GFR NON AFRICAN AMERICAN 120 ML/MIN (>=60); POTASSIUM, SERUM 3.4 MMOL/L (3.5-5.3); SODIUM, SERUM 136 MMOL/L (135-148)
[2017-02-06 07:14] LABS: GLUCOSE, SERUM 96 MG/DL (60-99)
[2017-02-07 20:48] LABS: BASOPHILS 0.1 %; BASOPHILS ABSOLUTE 0.01 10/3/uL (0.0-0.16); EOSINOPHILS 0.6 %; EOSINOPHILS ABSOLUTE 0.08 10/3/uL (0.0-0.53); HEMATOCRIT 30.7 % (36.0-48.0); HEMOGLOBIN 9.9 g/dL (12.0-16.0); IMMATURE GRANULOCYTES 0.4 %; IMMATURE GRANULOCYTES ABSOLUTE 0.05 10/3/uL (0.0-0.11); LYMPHOCYTES 4.8 %; LYMPHOCYTES ABSOLUTE 0.67 10/3/uL (0.67-4.30); MANUAL DIFF NO %; MEAN CORPUS HGB CONC 32.2 g/dL (32.0-36.0); MEAN CORPUSCULAR HEMOGLOB 27.3 pg (26.0-34.0); MEAN CORPUSCULAR VOLUME 84.8 fL (80-100); MEAN PLATELET VOLUME 8.2 fL (9.2-13.0); MONOCYTES 1.8 %; MONOCYTES ABSOLUTE 0.25 10/3/uL (0.21-1.20); NEUTROPHILS 92.3 %; NEUTROPHILS ABSOLUTE 12.79 10/3/uL (2.02-8.40); PLATELET COUNT 345 10/3/uL (150-400); RBC DISTRIBUTION WIDTH 16.6 % (12.0-16.0); RED CELL COUNT 3.62 10/6/uL (4.0-5.6); WHITE BLOOD CELLS 13.9 10/3/uL (4.5-10.5)
[2017-02-07 21:02] LABS: BUN (BLOOD UREA NITROGEN) 8 MG/DL (6-23); CALCIUM, SERUM 7.7 MG/DL (8.5-10.4); CHLORIDE, SERUM 100 MMOL/L (96-112); CO2 (CARBON DIOXIDE) 32 MMOL/L (24-34); CREATININE 0.37 MG/DL (0.55-1.02); GFR AFRICAN AMERICAN 150 ML/MIN (>=60); GFR NON AFRICAN AMERICAN 129 ML/MIN (>=60); SODIUM, SERUM 137 MMOL/L (135-148)
[2017-02-07 21:03] LABS: GLUCOSE, SERUM 129 MG/DL (60-99); POTASSIUM, SERUM 4.5 MMOL/L (3.5-5.3)
[2017-02-08 10:22] LABS: BASOPHILS 0.1 %; BASOPHILS ABSOLUTE 0.02 10/3/uL (0.0-0.16); EOSINOPHILS ABSOLUTE 0.15 10/3/uL (0.0-0.53); HEMATOCRIT 34.2 % (36.0-48.0); HEMOGLOBIN 11.1 g/dL (12.0-16.0); IMMATURE GRANULOCYTES 0.3 %; IMMATURE GRANULOCYTES ABSOLUTE 0.05 10/3/uL (0.0-0.11); LYMPHOCYTES 12.8 %; MANUAL DIFF NO %; MEAN CORPUS HGB CONC 32.5 g/dL (32.0-36.0); MEAN CORPUSCULAR HEMOGLOB 27.5 pg (26.0-34.0); MEAN CORPUSCULAR VOLUME 84.7 fL (80-100); MEAN PLATELET VOLUME 8.2 fL (9.2-13.0); MONOCYTES 11.2 %; MONOCYTES ABSOLUTE 1.67 10/3/uL (0.21-1.20); NEUTROPHILS 74.6 %; NEUTROPHILS ABSOLUTE 11.09 10/3/uL (2.02-8.40); PLATELET COUNT 357 10/3/uL (150-400); RBC DISTRIBUTION WIDTH 16.9 % (12.0-16.0); RED CELL COUNT 4.04 10/6/uL (4.0-5.6); WHITE BLOOD CELLS 14.9 10/3/uL (4.5-10.5)
[2017-02-08 10:36] LABS: A/G RATIO 0.4 (0.7-1.9); ALBUMIN 1.8 G/DL (3.5-5.0); BUN (BLOOD UREA NITROGEN) 9 MG/DL (6-23); CALCIUM, SERUM 8.1 MG/DL (8.5-10.4); CHLORIDE, SERUM 99 MMOL/L (96-112); CO2 (CARBON DIOXIDE) 28 MMOL/L (24-34); CREATININE 0.72 MG/DL (0.55-1.02); GFR AFRICAN AMERICAN 117 ML/MIN (>=60); GFR NON AFRICAN AMERICAN 101 ML/MIN (>=60); GLUCOSE, SERUM 109 MG/DL (60-99); POTASSIUM, SERUM 3.7 MMOL/L (3.5-5.3); SGOT(AST) 67 U/L (5-40); SGPT(ALT) 41 U/L (5-65); SODIUM, SERUM 135 MMOL/L (135-148); TOTAL BILIRUBIN 0.3 MG/DL (0-1.2); TOTAL PROTEIN 6.8 G/DL (6.0-8.5); VANCOMYCIN TROUGH 14.8 MCG/ML (10.0-20.0)
[2017-02-08 10:38] LABS: ALKALINE PHOSPHATASE 194 U/L (45-117)
[2017-02-09 03:57] LABS: BASOPHILS 0.2 %; BASOPHILS ABSOLUTE 0.02 10/3/uL (0.0-0.16); EOSINOPHILS 4.2 %; HEMATOCRIT 31.7 % (36.0-48.0); HEMOGLOBIN 10.1 g/dL (12.0-16.0); IMMATURE GRANULOCYTES 0.3 %; IMMATURE GRANULOCYTES ABSOLUTE 0.03 10/3/uL (0.0-0.11); MANUAL DIFF NO %; MEAN CORPUS HGB CONC 31.9 g/dL (32.0-36.0); MEAN CORPUSCULAR HEMOGLOB 27.1 pg (26.0-34.0); MEAN PLATELET VOLUME 8.1 fL (9.2-13.0); MONOCYTES 12.5 %; MONOCYTES ABSOLUTE 1.18 10/3/uL (0.21-1.20); NEUTROPHILS 63.8 %; NEUTROPHILS ABSOLUTE 6.04 10/3/uL (2.02-8.40); PLATELET COUNT 298 10/3/uL (150-400); RBC DISTRIBUTION WIDTH 17.1 % (12.0-16.0); RED CELL COUNT 3.73 10/6/uL (4.0-5.6); WHITE BLOOD CELLS 9.5 10/3/uL (4.5-10.5)
[2017-02-09 04:12] LABS: A/G RATIO 0.3 (0.7-1.9); ALBUMIN 1.6 G/DL (3.5-5.0); ALKALINE PHOSPHATASE 148 U/L (45-117); BUN (BLOOD UREA NITROGEN) 7 MG/DL (6-23); CALCIUM, SERUM 7.9 MG/DL (8.5-10.4); CHLORIDE, SERUM 100 MMOL/L (96-112); CO2 (CARBON DIOXIDE) 33 MMOL/L (24-34); CREATININE 0.59 MG/DL (0.55-1.02); GFR AFRICAN AMERICAN 128 ML/MIN (>=60); GFR NON AFRICAN AMERICAN 111 ML/MIN (>=60); GLOBULIN 4.6 G/DL (2.5-4.1); GLUCOSE, SERUM 98 MG/DL (60-99); POTASSIUM, SERUM 3.9 MMOL/L (3.5-5.3); SGOT(AST) 40 U/L (5-40); SGPT(ALT) 30 U/L (5-65); SODIUM, SERUM 137 MMOL/L (135-148); TOTAL BILIRUBIN 0.3 MG/DL (0-1.2); TOTAL PROTEIN 6.2 G/DL (6.0-8.5)
[2017-02-12 09:30] LABS: BASOPHILS 0.3 %; BASOPHILS ABSOLUTE 0.03 10/3/uL (0.0-0.16); EOSINOPHILS 3.4 %; EOSINOPHILS ABSOLUTE 0.38 10/3/uL (0.0-0.53); HEMATOCRIT 33.7 % (36.0-48.0); HEMOGLOBIN 11.2 g/dL (12.0-16.0); IMMATURE GRANULOCYTES 0.2 %; IMMATURE GRANULOCYTES ABSOLUTE 0.02 10/3/uL (0.0-0.11); LYMPHOCYTES 14.7 %; LYMPHOCYTES ABSOLUTE 1.67 10/3/uL (0.67-4.30); MANUAL DIFF NO %; MEAN CORPUS HGB CONC 33.2 g/dL (32.0-36.0); MEAN CORPUSCULAR HEMOGLOB 27.4 pg (26.0-34.0); MEAN CORPUSCULAR VOLUME 82.4 fL (80-100); MEAN PLATELET VOLUME 8.3 fL (9.2-13.0); MONOCYTES 7.1 %; NEUTROPHILS 74.3 %; NEUTROPHILS ABSOLUTE 8.43 10/3/uL (2.02-8.40); PLATELET COUNT 283 10/3/uL (150-400); RBC DISTRIBUTION WIDTH 17.4 % (12.0-16.0); RED CELL COUNT 4.09 10/6/uL (4.0-5.6); WHITE BLOOD CELLS 11.3 10/3/uL (4.5-10.5)
[2017-02-12 12:08] LABS: SODIUM, SERUM 136 MMOL/L (135-148)
[2017-02-12 12:22] LABS: BUN (BLOOD UREA NITROGEN) 6 MG/DL (6-23); CALCIUM, SERUM 8.6 MG/DL (8.5-10.4); CHLORIDE, SERUM 100 MMOL/L (96-112); CO2 (CARBON DIOXIDE) 31 MMOL/L (24-34); CREATININE 0.51 MG/DL (0.55-1.02); GFR AFRICAN AMERICAN 135 ML/MIN (>=60); GFR NON AFRICAN AMERICAN 116 ML/MIN (>=60); GLUCOSE, SERUM 92 MG/DL (60-99); VANCOMYCIN TROUGH 8.2 MCG/ML (10.0-20.0)
[2017-02-13 14:42] LABS: BASOPHILS 0.5 %; BASOPHILS ABSOLUTE 0.04 10/3/uL (0.0-0.16); EOSINOPHILS 5.7 %; EOSINOPHILS ABSOLUTE 0.44 10/3/uL (0.0-0.53); HEMATOCRIT 30.5 % (36.0-48.0); HEMOGLOBIN 9.7 g/dL (12.0-16.0); IMMATURE GRANULOCYTES 0.1 %; IMMATURE GRANULOCYTES ABSOLUTE 0.01 10/3/uL (0.0-0.11); LYMPHOCYTES 16.6 %; LYMPHOCYTES ABSOLUTE 1.28 10/3/uL (0.67-4.30); MANUAL DIFF NO %; MEAN CORPUS HGB CONC 31.8 g/dL (32.0-36.0); MEAN CORPUSCULAR HEMOGLOB 26.9 pg (26.0-34.0); MEAN CORPUSCULAR VOLUME 84.7 fL (80-100); MONOCYTES 9.4 %; MONOCYTES ABSOLUTE 0.73 10/3/uL (0.21-1.20); NEUTROPHILS 67.7 %; NEUTROPHILS ABSOLUTE 5.23 10/3/uL (2.02-8.40); PLATELET COUNT 330 10/3/uL (150-400); RBC DISTRIBUTION WIDTH 17.4 % (12.0-16.0); WHITE BLOOD CELLS 7.7 10/3/uL (4.5-10.5)
[2017-02-13 14:54] LABS: BUN (BLOOD UREA NITROGEN) 5 MG/DL (6-23); CALCIUM, SERUM 8.6 MG/DL (8.5-10.4); CHLORIDE, SERUM 100 MMOL/L (96-112); CO2 (CARBON DIOXIDE) 32 MMOL/L (24-34); CREATININE 0.48 MG/DL (0.55-1.02); GFR AFRICAN AMERICAN 137 ML/MIN (>=60); GFR NON AFRICAN AMERICAN 118 ML/MIN (>=60); GLUCOSE, SERUM 86 MG/DL (60-99); POTASSIUM, SERUM 4.1 MMOL/L (3.5-5.3); SODIUM, SERUM 137 MMOL/L (135-148)
[2017-02-14 09:19] LABS: BASOPHILS 0.4 %; BASOPHILS ABSOLUTE 0.03 10/3/uL (0.0-0.16); EOSINOPHILS 8.1 %; EOSINOPHILS ABSOLUTE 0.58 10/3/uL (0.0-0.53); HEMATOCRIT 32.6 % (36.0-48.0); HEMOGLOBIN 10.2 g/dL (12.0-16.0); IMMATURE GRANULOCYTES 0.3 %; IMMATURE GRANULOCYTES ABSOLUTE 0.02 10/3/uL (0.0-0.11); LYMPHOCYTES 19.1 %; LYMPHOCYTES ABSOLUTE 1.37 10/3/uL (0.67-4.30); MEAN CORPUS HGB CONC 31.3 g/dL (32.0-36.0); MEAN CORPUSCULAR HEMOGLOB 26.6 pg (26.0-34.0); MEAN CORPUSCULAR VOLUME 84.9 fL (80-100); MEAN PLATELET VOLUME 8.2 fL (9.2-13.0); MONOCYTES 9.5 %; MONOCYTES ABSOLUTE 0.68 10/3/uL (0.21-1.20); NEUTROPHILS 62.6 %; NEUTROPHILS ABSOLUTE 4.51 10/3/uL (2.02-8.40); PLATELET COUNT 404 10/3/uL (150-400); RBC DISTRIBUTION WIDTH 17.5 % (12.0-16.0); RED CELL COUNT 3.84 10/6/uL (4.0-5.6); WHITE BLOOD CELLS 7.2 10/3/uL (4.5-10.5)
[2017-02-14 09:20] LABS: MANUAL DIFF NO %
[2017-02-14 09:45] LABS: BUN (BLOOD UREA NITROGEN) 3 MG/DL (6-23); CALCIUM, SERUM 8.6 MG/DL (8.5-10.4); CHLORIDE, SERUM 100 MMOL/L (96-112); CO2 (CARBON DIOXIDE) 32 MMOL/L (24-34); CREATININE 0.57 MG/DL (0.55-1.02); GFR AFRICAN AMERICAN 130 ML/MIN (>=60); GFR NON AFRICAN AMERICAN 112 ML/MIN (>=60); GLUCOSE, SERUM 86 MG/DL (60-99); POTASSIUM, SERUM 3.6 MMOL/L (3.5-5.3); SODIUM, SERUM 137 MMOL/L (135-148)
[2017-02-16 09:07] LABS: BASOPHILS 0.4 %; BASOPHILS ABSOLUTE 0.04 10/3/uL (0.0-0.16); EOSINOPHILS 6.1 %; EOSINOPHILS ABSOLUTE 0.55 10/3/uL (0.0-0.53); HEMATOCRIT 29.8 % (36.0-48.0); HEMOGLOBIN 9.5 g/dL (12.0-16.0); IMMATURE GRANULOCYTES 0.4 %; IMMATURE GRANULOCYTES ABSOLUTE 0.04 10/3/uL (0.0-0.11); LYMPHOCYTES 14.4 %; MEAN CORPUS HGB CONC 31.9 g/dL (32.0-36.0); MEAN CORPUSCULAR HEMOGLOB 26.6 pg (26.0-34.0); MEAN CORPUSCULAR VOLUME 83.5 fL (80-100); MEAN PLATELET VOLUME 8.4 fL (9.2-13.0); MONOCYTES 9.7 %; MONOCYTES ABSOLUTE 0.88 10/3/uL (0.21-1.20); NEUTROPHILS ABSOLUTE 6.23 10/3/uL (2.02-8.40); PLATELET COUNT 324 10/3/uL (150-400); RBC DISTRIBUTION WIDTH 17.7 % (12.0-16.0); RED CELL COUNT 3.57 10/6/uL (4.0-5.6)
[2017-02-16 09:09] LABS: MANUAL DIFF NO %
[2017-02-16] MEDS ORDERED: ROXICODONE30 MG PO (10:21)
[2017-02-16 10:53] LABS: BUN (BLOOD UREA NITROGEN) 7 MG/DL (6-23); CALCIUM, SERUM 8.6 MG/DL (8.5-10.4); CHLORIDE, SERUM 104 MMOL/L (96-112); CO2 (CARBON DIOXIDE) 31 MMOL/L (24-34); CREATININE 0.57 MG/DL (0.55-1.02); GFR AFRICAN AMERICAN 130 ML/MIN (>=60); GFR NON AFRICAN AMERICAN 112 ML/MIN (>=60); GLUCOSE, SERUM 89 MG/DL (60-99); POTASSIUM, SERUM 4.5 MMOL/L (3.5-5.3); SODIUM, SERUM 140 MMOL/L (135-148)
[2017-03-14] MEDS ORDERED: KADIANSR30 PO (02:26)
[2017-03-14] MEDS ORDERED: VANCO1P IV (02:28)
[2017-03-14] MEDS ORDERED: AMB5 PO (02:28)
[2017-03-26] MEDS ORDERED: SEPTRA DS1 TAB PO (13:58)
[2017-03-26] MEDS ORDERED: CIP5 PO (14:00)
[2017-03-26] MEDS ORDERED: FLUCON1 PO (14:02)
== END 2017-02-16 14:57 | disposition home health service (06) | DRG 454 ==
LOC: 3SO 13:43
PROVIDERS: Internal Medicine Infectious Disease; Orthopaedic Surgery
PROC: 30233N1 Transfusion of Nonautologous Red Blood Cells into Peripheral Vein, Percutaneous Approach (ICD-10-PCS; 2017-02-02)
PROC: 0SG00A0 Fusion of Lumbar Vertebral Joint with Interbody Fusion Device, Anterior Approach, Anterior Column, Open Approach (ICD-10-PCS; principal; 2017-02-02 07:00)
PROC: 0SG1071 Fusion of 2 or more Lumbar Vertebral Joints with Autologous Tissue Substitute, Posterior Approach, Posterior Column, Open Approach (ICD-10-PCS; 2017-02-07)
PROC: 02HV33Z Insertion of Infusion Device into Superior Vena Cava, Percutaneous Approach (ICD-10-PCS; 2017-02-07)
PROC: 8E0WXBG Computer Assisted Procedure of Trunk Region, With Computerized Tomography (ICD-10-PCS; 2017-02-07)
PROC: 0JPT0VZ Removal of Infusion Pump from Trunk Subcutaneous Tissue and Fascia, Open Approach (ICD-10-PCS; 2017-02-13)
DX: M46.26 Osteomyelitis of vertebra, lumbar region (principal); R64 Cachexia; L89.159 Pressure ulcer of sacral region, unspecified stage; Z99.81 Dependence on supplemental oxygen; R13.10 Dysphagia, unspecified; M41.56 Other secondary scoliosis, lumbar region; T85.695A Other mechanical complication of other nervous system device, implant or graft, initial encounter; M46.46 Discitis, unspecified, lumbar region; E03.9 Hypothyroidism, unspecified; F17.210 Nicotine dependence, cigarettes, uncomplicated; Z96.641 Presence of right artificial hip joint; M48.06 Spinal stenosis, lumbar region; M06.9 Rheumatoid arthritis, unspecified; J44.9 Chronic obstructive pulmonary disease, unspecified; K21.9 Gastro-esophageal reflux disease without esophagitis; F43.10 Post-traumatic stress disorder, unspecified; G89.29 Other chronic pain; M79.7 Fibromyalgia; J45.909 Unspecified asthma, uncomplicated; Y75.1 Therapeutic (nonsurgical) and rehabilitative neurological devices associated with adverse incidents; M40.10 Other secondary kyphosis, site unspecified; M47.9 Spondylosis, unspecified; B95.62 Methicillin resistant Staphylococcus aureus infection as the cause of diseases classified elsewhere; K59.00 Constipation, unspecified; D64.9 Anemia, unspecified; Z89.611 Acquired absence of right leg above knee; Z86.19 Personal history of other infectious and parasitic diseases; Z83.3 Family history of diabetes mellitus; Z79.899 Other long term (current) drug therapy; Z91.19 Patient's noncompliance with other medical treatment and regimen; Z86.718 Personal history of other venous thrombosis and embolism
CPT/HCPCS: 36415; 36569; 71010; 74000; 80048; 80053; 80202; 82330; 82803; 82947; 82962; 84132; 84295; 84703; 85014; 85018; 85025; 85652; 86141; 86850; 86900; 86901; 86920; 87040; 87070; 87075; 87077; 87102; 87186; 87205; 87641; 88300; 88304; 88311; 94640; 97110-GP; 97162-GP; 97164-GP; 97530-GP; A9270-GY; C1713; C1751; G8978-CK-GP; G8978-CM-GP; G8979-CI-GP; G8979-CL-GP; J0690; J1170; J1644; J2185; J2250; J2405; J2550; J2710; J3010; J3370; P9016; P9045